=== PATIENT | male | born 1970 | race Caucasian/White ===

== ENCOUNTER 2018-11-05 10:16 | Emergency (ER) | payer MEDICAID ==
[~2018-11-05] VITALS: Ht 167.6 cm; Wt 99.8 kg
[~2018-11-05 10:16] MED LIST: AMLO5TAB6 PO; ATOR20TA40 PO; LEVEMIR SUBQ; LISI10TA11 PO; METF-988 PO; PIOG30TA PO
--- NOTE | 2018-11-05 10:21 | NUR ---
PATIENT AMBULATED TO ER BED 9
[2018-11-05 10:26] VITALS: BP 140/104
--- NOTE | 2018-11-05 10:28 | NUR ---
BIB SELF. AAO X4 C/O R EYE PAIN X 4 DAYS, + REDNESS ON THE LOWER, LATERAL R EYE, + EDEMA, + BLURRY VISION, 7/10 STINGING PAIN. NO EYE DISCHARGE NOTED. NO FEVER. PERRLA, EYE BRISK 3 MM. PER PT EYEDROPS WAS USED TO RELIEVE PAIN. PER PT HE WAS SEEN BY THE HISTORY INSTRUCTOR EARLY THIS YEAR AND FOUND AN UNKNOWN SPOT BEHIND THE EYE. PT UNABLE TO F/U DUE TO FINANCIAL CONSTRAINTS. HOB UP, BED SIDE RAIL UP X1. ON LOW BED POSITION, LOCKED. ER MADE AWARE OF PT STATUS.
--- NOTE | 2018-11-05 10:42 | NUR ---
Juan edmondson in ED - 11/05/18 at 1043 by JOHN PT PREFER TO BE ON RESTRAINT OVER THE HAND CUFF, [place] [place] [employer] AT BEDSIDE.
[2018-11-05] MEDS ORDERED: FLUORESCEIN OPTH STRIP 0.6 MG OP ONE (10:45)
[2018-11-05] MEDS ORDERED: TETRACAINE HCL/PF 0.5% OPTH 4 ML BTL OP ONE (10:45)
--- NOTE | 2018-11-05 10:45 | NUR ---
DR DE LA ROSA AT BEDSIDE FOR PT EVALUATION
--- NOTE | 2018-11-05 10:47 | NUR ---
MEDICATIONS, FLOURESCENT STRIP AND TETRACAINE GIVEN TO THE PROVIDER
[2018-11-05 11:36] VITALS: BP 137/88
--- NOTE | 2018-11-05 11:36 | NUR ---
Patient discharged with v/s stable. Written and verbal after care instructions given and explained. Patient alert, oriented and verbalized understanding of instructions. Ambulatory with steady gait. All questions addressed prior to discharge. ID band removed. Patient advised to follow up with PMD. Rx of Erythromycin 0.5% Ophthalmic Ointment given. Patient educated on indication of medication including possible reaction and side effects. Opportunity to ask questions provided and answered.
== END 2018-11-05 11:48 | disposition home or self-care (01) ==
LOC: MED 10:16
DX: S05.01XA Injury of conjunctiva and corneal abrasion without foreign body, right eye, initial encounter (principal); E11.9 Type 2 diabetes mellitus without complications; I10 Essential (primary) hypertension; Z79.84 Long term (current) use of oral hypoglycemic drugs; Z79.899 Other long term (current) drug therapy; X58.XXXA Exposure to other specified factors, initial encounter; Y93.89 Activity, other specified; Y92.89 Other specified places as the place of occurrence of the external cause; Y99.8 Other external cause status
CPT/HCPCS: 99283